=== PATIENT | male | born 1960 | race Caucasian/White ===

== ENCOUNTER 2017-06-19 10:57 | Emergency (ER) | payer OTHER, MEDICARE ==
[~2017-06-19] VITALS: Ht 170.2 cm; Wt 86.2 kg
[2017-06-19 10:57] VITALS: BP_SYST 128
--- NOTE | 2017-06-19 10:57 | NUR ---
Pt BIB BLS, placed to ER bed 02, triaged at bedside, placed on splitter tender, seizure precautions i place. Pt from [facility] sent r/t seizure this AM, hx epilepsy. 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 Pt alert, responsive, NAD, no seizure activity observed. G-tube secure, site clean, dry, intact.
--- NOTE | 2017-06-19 11:15 | NUR ---
Dr. Alvares at bedside to assess pt.
--- NOTE | 2017-06-19 11:25 | NUR ---
# 20 gauge angiocath placed to LAC. Use of asceptic technique. Opsite placed over site. Blood return noted. Blood for lab drawn from site. Flushed with 10 cc of normal saline. No evidence of infiltration noted. Patient tolerated well.
[2017-06-19 11:51] LABS: BASOPHILS # (AUTO) 0.2 K/uL (0.0-0.2); EOSINOPHILS % (AUTO) 0.1 % (0.0-4.0); HEMATOCRIT 48.7 % (36-54); HEMOGLOBIN 15.9 g/dL (14.0-18.0); LYMPHOCYTES # (AUTO) 1.1 K/uL (1.0-5.5); LYMPHOCYTES % (AUTO) 15.2 % (20.5-51.5); MEAN CORPUSCULAR HEMOGLOBIN 30 pg (27-31); MEAN CORPUSCULAR HGB CONC 33 % (32-36); MEAN CORPUSCULAR VOLUME 92 fL (79.0-98.0); MONOCYTES # (AUTO) 0.4 K/uL (0.0-1.0); MONOCYTES % (AUTO) 5.9 % (1.7-9.3); NEUTROPHILS # (AUTO) 5.9 K/uL (1.8-7.7); NEUTROPHILS % (AUTO) 76.8 % (40.0-70.0); PLATELET COUNT (AUTO) 123 K/uL (130-430); RED BLOOD CELL COUNT(AUTO) 5.28 MIL/uL (4.2-6.2); WHITE BLOOD COUNT (AUTO) 7.6 K/uL (4.8-10.8)
[2017-06-19 12:00] LABS: BILIRUBIN,URINE NEGATIVE (NEGATIVE); BLOOD, URINE NEGATIVE (NEGATIVE); CLARITY/URINE CLEAR (CLEAR); COLOR,URINE YELLOW (YELLOW); GLUCOSE,URINE NEGATIVE (NEGATIVE); KETONES,URINE NEGATIVE (NEGATIVE); LEUKOCYTE ESTERASE ,URINE NEGATIVE (NEGATIVE); NITRITE, URINE NEGATIVE (NEGATIVE); PH,URINE 5.5 (5.0-8.0); PROTEIN URINE TRACE (NEGATIVE); UROBILINOGEN,URINE 0.2 (0.2-1.0)
[2017-06-19 12:03] LABS: CALCIUM 8.4 mg/dL (8.4-11.0); CREATININE 0.73 mg/dL (0.55-1.30); INR 1.2 (0.80-1.20); POTASSIUM 4.2 mmol/L (3.5-5.1); PROTHROMBIN TIME 12.5 SECS (9.5-12.5)
[2017-06-19 12:08] LABS: ALBUMIN 3.7 g/dL (3.4-4.8); TOTAL BILIRUBIN 0.7 mg/dL (0.0-1.0); TOTAL PROTEIN, SERUM 8.7 g/dL (6.4-8.3)
[2017-06-19] MEDS ORDERED: TYLL650 GT (12:32)
[2017-06-19] MEDS ORDERED: BENZ0.5T3 GT (12:32)
[2017-06-19] MEDS ORDERED: BACL10TA GT (12:32)
[2017-06-19 12:36] LABS: BACTERIA,URINE None Seen /HPF (None Seen); MUCUS,URINE 1+ /LPF (None Seen); RBC,URINE 0-3 /HPF (0-3); URINE AMORPHOUS URATE 1+ /HPF (None Seen); WBC,URINE 0-3 /HPF (0-3)
[2017-06-19] MEDS ORDERED: GLUC1VIA4 IJ (12:36)
[2017-06-19] MEDS ORDERED: NA P133E41 RC (12:36)
[2017-06-19] MEDS ORDERED: DULR10 RC (12:36)
--- NOTE | 2017-06-19 13:31 | NUR ---
Pt alert, responsive, no seizure activity noted. VSS, NAD.
--- NOTE | 2017-06-19 13:33 | NUR ---
Dr. Alvares on phone with Dr. Cox regarding admit.
--- NOTE | 2017-06-19 14:30 | NUR ---
Pt alert, responsive, VSS, NAD. Family member at bedside. No needs verbalized at this time. No seizure activity.
--- NOTE | 2017-06-19 15:37 | NUR ---
Pt report called to Esperanza Manrique at [facility] ( .)
[2017-06-19 16:00] VITALS: BP_SYST 105
== END 2017-06-19 16:00 | disposition home or self-care (01) ==
LOC: SED 10:57
DX: R56.9 Unspecified convulsions (principal); Z88.2 Allergy status to sulfonamides; Z88.8 Allergy status to other drugs, medicaments and biological substances; Z79.899 Other long term (current) drug therapy
CPT/HCPCS: 36415; 70450-TC; 71010; 80053; 81000-TC; 82962; 83880; 84484; 85025; 85610-TC; 85730-TC; 93005; 99285